=== PATIENT | male | born 1995 | race Caucasian/White ===

== ENCOUNTER 2018-08-30 12:52 | Emergency (ER) | payer SELFPAY ==
--- NOTE | 2018-08-30 14:01 | RAD ---
EXAM: 2 views of the left clavicle HISTORY: Clavicle pain COMPARISON: None FINDINGS: There is no evidence of acute fracture or dislocation. No soft tissue swelling is seen. No degenerative changes are seen in the wrist or elbow. The visualized upper thorax is unremarkable. IMPRESSION: No evidence of acute osseous abnormality.
[2018-08-30] MEDS ORDERED: Adacel (T-DAP) 0.5 ML SYRINGE ONE (14:58)
[2018-08-30] MEDS ORDERED: CEFAZOLIN 1 GM VIAL ONE (14:59)
--- NOTE | 2018-08-30 15:43 | RAD ---
EXAM: Single view of the chest HISTORY: Left clavicle high-pressure bleach exposure COMPARISON: None FINDINGS: Single view of the chest shows a normal sized cardiomediastinal silhouette. There is no joshua dence of consolidation, mass, or pleural effusion. The bones are unremarkable. IMPRESSION: No evidence of acute cardiopulmonary disease
== END 2018-08-30 16:24 | disposition left against medical advice (07) ==
LOC: ERS 12:52
DX: S41.002A Unspecified open wound of left shoulder, initial encounter (principal); F17.210 Nicotine dependence, cigarettes, uncomplicated; W22.8XXA Striking against or struck by other objects, initial encounter
CPT/HCPCS: 71045; 90471; 90715; 96365; J0690